=== PATIENT | male | born 1965 | race African-American/Black ===

== ENCOUNTER 2017-08-14 05:35 | Emergency (ER) | payer MEDICAID ==
[~2017-08-14] VITALS: Ht 190.5 cm; Wt 151.5 kg
[~2017-08-14 05:35] MED LIST: CEPHALEXIN500 MG ORAL
[2017-08-14] MEDS ORDERED: BP MEDS (05:45)
[2017-08-14 05:55] VITALS: BP 145/92
[2017-08-14] MEDS ORDERED: AZITHROMYCIN250 MG ORAL (06:00)
[2017-08-14] MEDS ORDERED: IBUPROFEN600 MG ORAL (06:00)
--- NOTE | 2017-08-14 06:01 | Emergency Room Report ---
History of Present Illness General Chief Complaint: Sore Throat Source: Patient Present Illness HPI Is a 52-year-old male with has been aggressive high blood pressure for which is noncompliant. He presents with chief complaint of sore throat for the last week and half. No fever chills but no nausea vomiting. Worse with swallowing. Denies any other complaint. Allergies: Coded Allergies: No Known Allergies (Unverified , 08/21/15) Patient History Past Medical History: see triage record, old chart reviewed, HTN Past Surgical History: other Pertinent Family History: none Social History: Denies: smoking Immunizations: other Reviewed Nursing Documentation: PMH: Agreed, PSxH: Agreed Nursing Documentation-PMH Hx Hypertension: Yes Review of Systems Eye: Denies: eye pain, blurred vision ENT: Reports: throat pain, Denies: ear pain, nose congestion, throat swelling Respiratory: Denies: cough, shortness of breath Cardiovascular: Denies: chest pain, palpitations Gastrointestinal: Denies: abdominal pain, diarrhea, nausea, vomiting Musculoskeletal: Denies: back pain, joint pain Skin: Denies: rash Neurological: Denies: headache, numbness Endocrine: Denies: increased thirst, increased urine Hematologic/Lymphatic: Denies: easy bruising All Other Systems: negative except mentioned in HPI Physical Exam Vital Signs Date Time Temp Pulse Resp B/P (MAP) Pulse Ox O2 Delivery O2 Flow Rate FiO2 08/14/17 05:39 98.1 72 16 145/92 95 Room Air vitals with hypertension Sp02 EP Interpretation: reviewed, normal General Appearance: well appearing, no apparent distress, alert Head: normocephalic, atraumatic Eyes: bilateral eye PERRL, bilateral eye EOMI ENT: hearing grossly normal, tonsillar swelling, pharyngeal erythema Neck: full range of motion, supple, no meningismus Respiratory: chest non-tender, lungs clear, normal breath sounds Cardiovascular #1: regular rate, rhythm, no murmur Gastrointestinal: normal bowel sounds, non tender, no mass, no organomegaly, no bruit, non-distended Musculoskeletal: back normal, gait/station normal, normal range of motion Psychiatric: mood/affect normal Skin: warm/dry Medical Decision Making Diagnostic Impression: Primary Impression: Acute tonsillitis ER Course This is a 52-year-old male presents with tonsillitis. Because been going on for a week and a half we'll put on antibiotics but no evidence of peritonsillar abscess or retropharyngeal abscess. No evidence of [place] angina. Last Vital Signs Date Time Temp Pulse Resp B/P (MAP) Pulse Ox O2 Delivery O2 Flow Rate FiO2 08/14/17 05:55 98.1 16 145/92 95 Room Air 08/14/17 05:39 72 Status: unchanged Disposition: HOME, SELF-CARE Condition: Stable Scripts Azithromycin* (ZITHROMAX*) 250 Mg Tablet 250 MG ORAL DAILY, #6 TAB 0 Refills Take two tablets by mouth today, then take one tablet by mouth daily for four days Prov: EDEN LANDA M.D. 08/14/17 Ibuprofen* (MOTRIN*) 600 Mg Tablet 600 MG ORAL THREE TIMES A DAY, #30 TAB 0 Refills Prov: EDEN LANDA M.D. 08/14/17 Patient Instructions: Tonsillitis Additional Instructions: Followup with your Dr. in 7 days. Return if worse. EDEN LANDA M.D. Aug 14, 2017 06:00
== END 2017-08-14 06:03 | disposition home or self-care (01) ==
LOC: EMR 05:58
DX: J03.90 Acute tonsillitis, unspecified (principal); I10 Essential (primary) hypertension
CPT/HCPCS: 99283

== ENCOUNTER 2017-10-17 09:53 | Emergency (ER) | payer MEDICAID ==
[~2017-10-17] VITALS: Ht 190.5 cm; Wt 145.1 kg
[~2017-10-17 09:53] MED LIST changes: +AZITHROMYCIN250 MG ORAL; +BP MEDS; +IBUPROFEN600 MG ORAL
[2017-10-17 10:33] VITALS: BP 150/95
--- NOTE | 2017-10-17 11:03 | Emergency Room Report ---
History of Present Illness General Chief Complaint: Sore Throat Source: Patient Present Illness HPI This patient states that he woke up this morning with a sore feeling in his throat. He also has a sensation that there is something hanging in the back of his throat. He states that his throat feels weird when he swallows. He denies fever or chills. He denies nausea or vomiting. He denies neck pain. He denies rhinorrhea. He denies cough or congestion. He has no other complaints. Allergies: Coded Allergies: No Known Allergies (Unverified , 08/21/15) Patient History Past Medical History: see triage record, HTN Social History: Denies: smoking, alcohol use, drug use Reviewed Nursing Documentation: PMH: Agreed; PSxH: Agreed Nursing Documentation-PMH Hx Hypertension: Yes Review of Systems All Other Systems: negative except mentioned in HPI Physical Exam Vital Signs Date Time Temp Pulse Resp B/P (MAP) Pulse Ox O2 Delivery O2 Flow Rate FiO2 10/17/17 10:04 98.2 75 17 150/95 95 Room Air 98.2 Sp02 EP Interpretation: reviewed, normal General Appearance: no apparent distress, alert, GCS 15, non-toxic Head: normocephalic, atraumatic Eyes: bilateral eye normal inspection, bilateral eye PERRL ENT: hearing grossly normal, no angioedema, normal voice, uvula midline - The uvula is erythematous, swollen and enlarged., moist mucus membranes, pharyngeal erythema Neck: full range of motion, supple/symm/no masses Respiratory: chest non-tender, lungs clear, normal breath sounds, speaking full sentences Cardiovascular #1: regular rate, rhythm, no edema Gastrointestinal: normal bowel sounds, non tender, soft, non-distended, no guarding, no rebound Rectal: deferred Musculoskeletal: back normal, gait/station normal, normal range of motion, non- tender Neurologic: alert, oriented x3, responsive, motor strength/tone normal, sensory intact, speech normal Psychiatric: judgement/insight normal, memory normal, mood/affect normal, no suicidal/homicidal ideation Skin: normal color, no rash, warm/dry, well hydrated Medical Decision Making Diagnostic Impression: Primary Impression: Pharyngitis Additional Impression: Uvulitis ER Course This patient has a clinical presentation consistent with pharyngitis and has an associated uvulitis. Physical exam is consistent with a viral etiology, however given the uvulitis I felt I should treat with an antibiotic given bacterial etiology is more common in uvulitis. There is no evidence of peritonsillar abscess or deep neck abscess. There is no airway edema. Overall , this patient had a very benign examination. I will also give the patient Motrin as a pain medication and anti-inflammatory. The patient was given return precautions and followup instructions. Last Vital Signs Date Time Temp Pulse Resp B/P (MAP) Pulse Ox O2 Delivery O2 Flow Rate FiO2 10/17/17 10:33 98.1 84 17 150/95 95 Room Air 98.1 Disposition: HOME, SELF-CARE Condition: Improved Referrals: [facility],REFERRING (PCP) Patient Instructions: Sore Throat BRIDGETTE EASON D.O. Oct 17, 2017 11:03
[2017-10-17] MEDS ORDERED: AUGMENTIN 875-1 EAC1 ORAL (11:12)
[2017-10-17] MEDS ORDERED: MEDROL4 MG ORAL (11:12)
[2017-10-17] MEDS ORDERED: IBUPROFEN600 MG ORAL (11:12)
[2017-10-17 11:30] VITALS: BP 148/88
== END 2017-10-17 11:42 | disposition home or self-care (01) ==
LOC: EMR 10:21
DX: J02.9 Acute pharyngitis, unspecified (principal); K12.2 Cellulitis and abscess of mouth; I10 Essential (primary) hypertension
CPT/HCPCS: 99282

== ENCOUNTER 2018-07-23 21:33 | Emergency (ER) | payer MEDICAID ==
[~2018-07-23] VITALS: Ht 190.5 cm; Wt 145.1 kg
[~2018-07-23 21:33] MED LIST changes: +AUGMENTIN 875-1 EAC1 ORAL; +MEDROL4 MG ORAL
[2018-07-23 22:00] VITALS: BP 148/94
--- NOTE | 2018-07-23 22:00 | NUR ---
ER Nurse Note: Pt came from home c/o epigastric pain for three days. Pt stated he does not know the onset and aggraviting factors. Pt stated blanca at 4/10 pain, burning and sharp pain in the mid chest and epigastric area. Pt denies n/v/d; stated he can tolerate foods. Bowel sounds heard in all quadrants. Abdomen firm and round. ERMD at pt side; will continue to montior.
[2018-07-23] MEDS ORDERED: Sodium Chloride 500ML 500 ML IV ONE (22:03)
[2018-07-23] MEDS ORDERED: Mylanta II UD 30ml ORAL ONE (22:15)
[2018-07-23] MEDS ORDERED: Dicyclomine HCl 10mg/5ml oral soln ORAL ONE (22:15)
[2018-07-23] MEDS ORDERED: Lidocaine 2% Visc 15ml soln ORAL ONE (22:15)
[2018-07-23 22:44] LABS: BASOPHILS % (AUTO) 2.6 % (0.0-2.0); EOSINOPHILS % (AUTO) 5.2 % (0.0-3.0); HEMATOCRIT 43.7 % (42.0-52.0); LYMPHOCYTES % (AUTO) 47.7 % (20.0-45.0); MEAN CORPUSCULAR VOLUME 82 FL (80-99); MONOCYTES % (AUTO) 7.1 % (1.0-10.0); NEUTROPHILS % (AUTO) 37.4 % (45.0-75.0); PLATELET COUNT 277 K/UL (150-450); RED BLOOD COUNT 5.35 M/UL (4.70-6.10); RED CELL DISTRIBUTION WIDTH 13.6 % (11.6-14.8); WHITE BLOOD COUNT 5.6 K/UL (4.8-10.8)
[2018-07-23 22:45] VITALS: BP 148/94
--- NOTE | 2018-07-23 22:45 | NUR ---
ER Nurse Note: Pt seen, treated, medically cleared by ERMD for discharge. Discharge instructions and prescriptions given with repeat verbalization by pt. Instructed pt to follow up with primary care phyican within one weel. Pt a&ox4, VSS, no signs of distress. IV removed, site clean and bandaged. ID band removed; left with all belongings on steady gait, via own transportation.
[2018-07-23 22:51] LABS: ANION GAP 10 mmol/L (5-15); BLOOD UREA NITROGEN 10 mg/dL (7-18); CALCIUM 9.1 MG/DL (8.5-10.1); CARBON DIOXIDE 24 MMOL/L (21-32); CHLORIDE 105 MMOL/L (98-107); CREATININE 1.2 MG/DL (0.55-1.30); POTASSIUM 3.7 MMOL/L (3.5-5.1); SODIUM 139 MMOL/L (136-145)
[2018-07-23 22:55] LABS: ALANINE AMINOTRANSFERASE 35 U/L (12-78); ALBUMIN 3.8 G/DL (3.4-5.0); ALBUMIN/GLOBULIN RATIO 0.9 (1.0-2.7); ALKALINE PHOSPHATASE 86 U/L (46-116); ASPARTATE AMINO TRANSFERASE 22 U/L (15-37); BILIRUBIN,TOTAL 0.2 MG/DL (0.2-1.0)
[2018-07-23] MEDS ORDERED: RANITIDINE HCL150 MG ORAL (23:16)
--- NOTE | 2018-07-24 01:19 | Emergency Room Report ---
History of Present Illness General Chief Complaint: Abdominal Pain Source: Patient Present Illness HPI 53-year-old male presents ED for evaluation. Patient complaining of abdominal pain 3 days. Started after he drank some energy drinks and had some greasy food. Took some Mylanta and Pepto-Bismol without relief. Pain is epigastric, burning, 4 out of 10, nonradiating. Denies chest pain or shortness of breath. Denies fevers or chills. Denies nausea or vomiting. Denies any diarrhea. No other aggravating relieving factors. Denies any other associated symptoms Allergies: Coded Allergies: No Known Allergies (Unverified , 08/21/15) Patient History Past Medical History: HTN Past Surgical History: none Pertinent Family History: none Social History: Denies: smoking, alcohol use, drug use Immunizations: UTD Reviewed Nursing Documentation: PMH: Agreed; PSxH: Agreed Nursing Documentation-PMH Hx Hypertension: Yes Review of Systems All Other Systems: negative except mentioned in HPI Physical Exam Vital Signs Date Time Temp Pulse Resp B/P (MAP) Pulse Ox O2 Delivery O2 Flow Rate FiO2 07/23/18 21:42 98.4 84 16 148/94 95 Room Air Sp02 EP Interpretation: reviewed, normal General Appearance: no apparent distress, alert, GCS 15, non-toxic, obese Head: normocephalic, atraumatic Eyes: bilateral eye normal inspection, bilateral eye PERRL ENT: hearing grossly normal, normal pharynx, no angioedema, normal voice Neck: full range of motion, supple/symm/no masses Respiratory: chest non-tender, lungs clear, normal breath sounds, speaking full sentences Cardiovascular #1: regular rate, rhythm, no edema Cardiovascular #2: 2+ carotid (R), 2+ carotid (L), 2+ radial (R), 2+ radial (L) , 2+ dorsalis pedis (R), 2+ dorsalis pedis (L) Gastrointestinal: normal bowel sounds, soft, non-distended, no guarding, no rebound, tenderness - epigastric Rectal: deferred Genitourinary: normal inspection, no CVA tenderness Musculoskeletal: back normal, gait/station normal, normal range of motion, non- tender Neurologic: alert, oriented x3, responsive, motor strength/tone normal, sensory intact, speech normal Psychiatric: judgement/insight normal, memory normal, mood/affect normal, no suicidal/homicidal ideation Reflexes: 3+ bicep (R), 3+ bicep (L), 3+ tricep (R), 3+ tricep (L), 3+ knee (R) , 3+ knee (L) Skin: normal color, no rash, warm/dry, well hydrated Lymphatic: no adenopathy Medical Decision Making Diagnostic Impression: Primary Impression: Gastritis Qualified Codes: K29.00 - Acute gastritis without bleeding ER Course Hospital Course 53-year-old M presents to ED with epigastric pain x 3 days differential diagnosis: gastritis, SBO, cholecystits Clinical course Patient placed on stretcher. On threat monitoring analyst. After initial history and physical I ordered labs, IV fluids, pepcid, GI cocktail, EKG Labs - no leukocytosis, no electrolyte abnormalities, LFTs normal EKG - NSR, no acute ischemic changes interpreted by me Upon reassessment, patient states pain has improved. findings consistent with gastritis Discussed findings with patient. Abdomen soft. No guarding or rebound. Safe for discharge close outpatient follow-up. States he has a PMD I feel this is a highly complex case requiring extensive working including EKG/ Rhythm strip, Xray/CT/US, Blood/urine lab work, repeat exams while in ED, and administration of strong opiates/narcotics for pain control, admission to hospital or close patient follow up. Diagnosis - gastritis Stable and discharged to home with prescriptions for Zantac. Followup with PMD. Return to ED if symptoms recur or worsen Labs Test 07/23/18 22:20 White Blood Count 5.6 K/UL (4.8-10.8) Red Blood Count 5.35 M/UL (4.70-6.10) Hemoglobin 14.0 G/DL (14.2-18.0) Hematocrit 43.7 % (42.0-52.0) Mean Corpuscular Volume 82 FL (80-99) Mean Corpuscular Hemoglobin 26.2 PG (27.0-31.0) Mean Corpuscular Hemoglobin Concent 32.1 G/DL (32.0-36.0) Red Cell Distribution Width 13.6 % (11.6-14.8) Platelet Count 277 K/UL (150-450) Mean Platelet Volume 6.6 FL (6.5-10.1) Neutrophils (%) (Auto) 37.4 % (45.0-75.0) Lymphocytes (%) (Auto) 47.7 % (20.0-45.0) Monocytes (%) (Auto) 7.1 % (1.0-10.0) Eosinophils (%) (Auto) 5.2 % (0.0-3.0) Basophils (%) (Auto) 2.6 % (0.0-2.0) Sodium Level 139 MMOL/L (136-145) Potassium Level 3.7 MMOL/L (3.5-5.1) Chloride Level 105 MMOL/L (98-107) Carbon Dioxide Level 24 MMOL/L (21-32) Anion Gap 10 mmol/L (5-15) Blood Urea Nitrogen 10 mg/dL (7-18) Creatinine 1.2 MG/DL (0.55-1.30) Estimat Glomerular Filtration Rate > 60 mL/min (>60) Glucose Level 86 MG/DL (74-106) Calcium Level 9.1 MG/DL (8.5-10.1) Total Bilirubin 0.2 MG/DL (0.2-1.0) Aspartate Amino Transf (AST/SGOT) 22 U/L (15-37) Alanine Aminotransferase (ALT/SGPT) 35 U/L (12-78) Alkaline Phosphatase 86 U/L (46-116) Total Protein 8.0 G/DL (6.4-8.2) Albumin 3.8 G/DL (3.4-5.0) Globulin 4.2 g/dL Albumin/Globulin Ratio 0.9 (1.0-2.7) Lipase 254 U/L (73-393) EKG Diagnostic Results Rate: normal Rhythm: NSR ST Segments: no acute changes ASA given to the pt in ED: No Rhythm Strip Diag. Results EP Interpretation: yes Rhythm: NSR, no PVC's, no ectopy Last Vital Signs Date Time Temp Pulse Resp B/P (MAP) Pulse Ox O2 Delivery O2 Flow Rate FiO2 07/23/18 21:42 98.4 84 16 148/94 95 Room Air Status: improved Disposition: HOME, SELF-CARE Condition: Stable Scripts Ranitidine Hcl* (ZANTAC*) 150 Mg Tablet 150 MG ORAL TWICE A DAY, #30 TAB Prov: Anderson Mason MD 07/23/18 Patient Instructions: Gastritis, Adult, [id number] Anderson Mason MD Jul 24, 2018 01:19
--- NOTE | 2018-07-24 13:21 | Cardiology Report ---
APPROVED REPORT EKG Measurement Heart [id number] Normal sinus rhythm Normal ECG
== END 2018-07-23 22:45 | disposition home or self-care (01) ==
LOC: EMR 21:59
DX: K29.70 Gastritis, unspecified, without bleeding (principal); I10 Essential (primary) hypertension
CPT/HCPCS: 36415; 80053; 83690; 85025; 93005; 96374; 96375; 99284; J2405; S0028

== ENCOUNTER 2019-03-02 00:42 | Emergency (ER) | payer MEDICAID ==
[~2019-03-02] VITALS: Ht 193 cm; Wt 163.3 kg
[~2019-03-02 00:42] MED LIST changes: +RANITIDINE HCL150 MG ORAL
--- NOTE | 2019-03-02 00:55 | NUR ---
ED Nurse Note: Walk-in patient presents with complaints of left lower leg lesion, rash lik with pus for a few days. Patient reports no pain at this time. Will monitor progress and service any orders.
[2019-03-02 00:56] VITALS: BP 147/97
[2019-03-02] MEDS ORDERED: MUPIROCIN22 GM TOPIC (01:06)
[2019-03-02] MEDS ORDERED: BACTRIM DS TAB1 EAC1 ORAL (01:06)
--- NOTE | 2019-03-02 01:06 | Emergency Room Report ---
History of Present Illness General Chief Complaint: Skin Rash/Abscess Source: Patient Present Illness [facility] This is a 53-year-old male with a history of hypertension but not on medication. He presents with chief complaint of a spider bite to the right lower extremity. He noticed some itching to the right lower extremity this morning. He is scratching it and since it o'clock that he has some drainage. He also has abrasion to his legs secondary to hitting his bed frame frequently. Denies seeing any spider. No pain. No fever chills. Allergies: Coded Allergies: No Known Allergies (Unverified , 08/21/15) Patient History Past Medical History: see triage record, old chart reviewed, HTN Past Surgical History: none Pertinent Family History: none Social History: Denies: smoking Immunizations: other Reviewed Nursing Documentation: PMH: Agreed; PSxH: Agreed Nursing Documentation-PMH Past Medical History: No History, Except For Hx Hypertension: Yes Hx Asthma: Yes Review of Systems Eye: Denies: eye pain, blurred vision ENT: Denies: ear pain, nose congestion, throat swelling Respiratory: Denies: cough, shortness of breath Cardiovascular: Denies: chest pain, palpitations Gastrointestinal: Denies: abdominal pain, diarrhea, nausea, vomiting Musculoskeletal: Denies: back pain, joint pain Skin: Denies: rash Neurological: Denies: headache, numbness Endocrine: Denies: increased thirst, increased urine Hematologic/Lymphatic: Denies: easy bruising All Other Systems: negative except mentioned in HPI Physical Exam Vital Signs Date Time Temp Pulse Resp B/P (MAP) Pulse Ox O2 Delivery O2 Flow Rate FiO2 03/02/19 00:47 97.5 74 16 147/97 (114) 95 Room Air Vitals with high blood pressure Sp02 EP Interpretation: reviewed, normal General Appearance: well appearing, no apparent distress, alert Head: normocephalic, atraumatic Eyes: bilateral eye PERRL, bilateral eye EOMI ENT: hearing grossly normal, normal pharynx Neck: full range of motion, supple, no meningismus Respiratory: chest non-tender, lungs clear, normal breath sounds Cardiovascular #1: regular rate, rhythm, no murmur Gastrointestinal: normal bowel sounds, non tender, no mass, no organomegaly, no bruit, non-distended Musculoskeletal: back normal, gait/station normal, normal range of motion, other - Right lower extremity: Over the harper area he has abrasion and yellowish serous drainage. No abscess seen. No crepitance. Mild redness and warmth. Psychiatric: mood/affect normal Medical Decision Making Diagnostic Impression: Primary Impression: Cellulitis of right lower extremity without foot ER Course Patient with cellulitis to the lower extremity. Most likely staph infection. No evidence of any assess the need to be I&D or necrotizing fasciitis. Will discharge home. Last Vital Signs Date Time Temp Pulse Resp B/P (MAP) Pulse Ox O2 Delivery O2 Flow Rate FiO2 03/02/19 00:56 97.5 82 16 147/97 95 Room Air Status: unchanged Disposition: HOME, SELF-CARE Condition: Stable Scripts Mupirocin* (MUPIROCIN*) 22 Gm Oint...g. 1 APPLIC TOPIC THREE TIMES A DAY, #22 GM Prov: Larry Guerra MD 03/02/19 Trimethoprim/Sulfamethoxazole 160/800* (BACTRIM DS TABLET*) 1 Each Tablet 1 TAB ORAL Q12H, #14 TAB 0 Refills Prov: Larry Guerra MD 03/02/19 Additional Instructions: Keep wound clean. Clean first with hydrogen peroxide and then apply antibiotic ointment. Follow-up with your doctor in 7 days for recheck. Check your blood pressure at home. Return if symptoms worsen. Larry Guerra MD Mar 02, 2019 01:06
--- NOTE | 2019-03-02 01:14 | NUR ---
ED Nurse Note: Patient cleared for discharge, no s/s/ of acute distress. Patient ID band removed. Patient verbalized understanding of discharge instructions and departed with all belongings
[2019-03-02 01:15] VITALS: BP 147/97
[2019-03-02] MEDS ORDERED: Neosporin Oint Ud Pkt TOPIC ONE (01:15)
== END 2019-03-02 01:14 | disposition home or self-care (01) ==
LOC: EMR 01:01
DX: L03.115 Cellulitis of right lower limb (principal); I10 Essential (primary) hypertension; J45.909 Unspecified asthma, uncomplicated
CPT/HCPCS: 99282

== ENCOUNTER 2019-04-01 21:36 | Emergency (ER) | payer MEDICAID ==
[~2019-04-01] VITALS: Ht 190.5 cm; Wt 165.1 kg
[~2019-04-01 21:36] MED LIST changes: +BACTRIM DS TAB1 EAC1 ORAL; +MUPIROCIN22 GM TOPIC
[2019-04-01 21:48] VITALS: BP 133/78
--- NOTE | 2019-04-01 21:48 | NUR ---
ED Nurse Note: Pt walked in to ER and is stating that "fluid coming out of my wound". As per patient, he got an infection on right harper one month ago, [place] [facility], got treated and was D/C with antibiotics. Pt stated he took all meds but wound is not healing. Wound small, clear drainage. 4/10 pain with touch. Alert and oriented, verbally responsive. Breathing even and unlabored. No SOB. Afebrile. VSS
[2019-04-01] MEDS ORDERED: CEPHALEXIN500 MG ORAL (22:03)
[2019-04-01 22:05] VITALS: BP 133/78
--- NOTE | 2019-04-01 22:05 | NUR ---
ED Nurse Note: Pt cleared by ERMD for discharge. DC instructions/prescription was given and explained to pt and verbalized understanding of teachings. All medical deviecs such as ID band removed. Pt is AAO x4, ambulatory and left with all personal belongings.
--- NOTE | 2019-04-01 22:11 | Emergency Room Report ---
History of Present Illness General Chief Complaint: Skin Rash/Abscess Source: Patient Present Illness HPI Patient presents with complaints of ongoing problems with his right leg reports that he was here last month with Some discharge from the right leg at that time questionably insect bite and was treated with antibiotics Patient denies any fevers denies any headache denies any chest pain he feels that the redness is better however there continues to be some discharge from 1 of the open areas in the anterior leg denies any calf pain denies any medications patient has not had any follow-up with primary physician since discharge from here Patient reports that he does not feel his primary physician does anything Patient main complaint was from the right leg however evaluating both legs patient has similar findings on the left leg with several scab formations in the anterior tibial region with Edema as well Allergies: Coded Allergies: No Known Allergies (Unverified , 08/21/15) Patient History Past Medical History: see triage record Reviewed Nursing Documentation: PMH: Agreed; PSxH: Agreed Nursing Documentation-PMH Hx Hypertension: Yes Hx Asthma: Yes Review of Systems All Other Systems: negative except mentioned in HPI Physical Exam Vital Signs Date Time Temp Pulse Resp B/P (MAP) Pulse Ox O2 Delivery O2 Flow Rate FiO2 04/01/19 21:42 98.1 81 16 133/78 (96) 95 Room Air Sp02 EP Interpretation: reviewed, normal General Appearance: well appearing, no apparent distress Head: normocephalic, atraumatic Eyes: bilateral eye PERRL, bilateral eye EOMI ENT: hearing grossly normal, normal pharynx Neck: supple Respiratory: lungs clear Cardiovascular #1: regular rate, rhythm Gastrointestinal: non tender, soft Musculoskeletal: other - Patient has dependent edema on both lower extremities , there is a small scab formation on the mid point of the dorsal tibial area, no obvious discharge at this time, there was some mild erythema noted Neurologic: alert, oriented x3 Skin: other - Bilateral mild edema noted scab formation on both lower extremities, Lymphatic: no adenopathy Medical Decision Making Diagnostic Impression: Primary Impression: Rash and other nonspecific skin eruption Additional Impression: edema ER Course Patient's findings are consistent with fairly chronic presenting pathology Patient requires pressure stockings Close primary physician follow-up is initially placed on Keflex given the mild erythema And will return with any changes or concerns Last Vital Signs Date Time Temp Pulse Resp B/P (MAP) Pulse Ox O2 Delivery O2 Flow Rate FiO2 04/01/19 21:48 98.1 78 16 133/78 95 Room Air Status: improved Disposition: HOME, SELF-CARE Condition: Improved Scripts Cephalexin* (KEFLEX*) 500 Mg Capsule 500 MG ORAL EVERY 6 HOURS, #10 CAP Prov: Stanislav Torres DO 04/01/19 Referrals: [facility] Patient Instructions: Edema, [id number] Additional Instructions: Patient is provided with the discharge instructions notified to follow up with primary doctor in the next 2-3 days otherwise return to the er with any worsening symptoms. Please note that this report is being documented using [employer] technology. This can lead to erroneous entry secondary to incorrect interpretation by the dictating instrument. Stanislav Torres DO Apr 01, 2019 22:11
[2019-04-01] MEDS ORDERED: Cephalexin 500mg cap ORAL ONE (22:15)
== END 2019-04-01 22:05 | disposition home or self-care (01) ==
LOC: EMR 21:55
DX: R60.0 Localized edema (principal); R21 Rash and other nonspecific skin eruption; I10 Essential (primary) hypertension; J45.909 Unspecified asthma, uncomplicated
CPT/HCPCS: 99282

== ENCOUNTER 2019-12-27 18:49 | Emergency (ER) | payer MEDICAID ==
[~2019-12-27] VITALS: Ht 190.5 cm; Wt 154.2 kg
[~2019-12-27 18:49] MED LIST changes: +BACITRACIN-P28.35 GM TP
[2019-12-27 19:11] VITALS: BP 173/97
[2019-12-27] MEDS ORDERED: Bacitracin Oint UD TOPIC ONE (19:30)
[2019-12-27] MEDS ORDERED: Lidocaine 1% Plain 30 ml INJ ONE (19:30)
--- NOTE | 2019-12-27 19:32 | Emergency Room Report ---
History of Present Illness General Chief Complaint: Skin Rash/Abscess Source: Patient Present Illness HPI 54-year-old male presents to the emergency department complaining of 8 out of 10 severity progressive pain, swelling, tenderness and erythema to the right great toe x1 week. Patient reports he attempted to remove part of his toenail on his own. He states when he was squeezing his toe at home he had some pus that came out. He denies trauma. He denies joint pain. He denies history of immune compromise, decreased circulation or diabetes. No other aggravating or relieving factors at this time. Denies fevers or chills. Allergies: Coded Allergies: No Known Allergies (Unverified , 08/21/15) COVID-19 Screening Contact w/high risk pt: No Recent Travel to affected area: No Experienced COVID-19 symptoms?: No COVID-19 Testing performed RIVET TESTER: No Patient History Past Medical History: see triage record Past Surgical History: none Pertinent Family History: none Reviewed Nursing Documentation: PMH: Agreed; PSxH: Agreed Nursing Documentation-PMH Past Medical History: No Stated History Hx Hypertension: Yes Hx Asthma: Yes Review of Systems All Other Systems: negative except mentioned in HPI Physical Exam Vital Signs Date Time Temp Pulse Resp B/P (MAP) Pulse Ox O2 Delivery O2 Flow Rate FiO2 12/27/19 18:58 96.1 83 16 173/97 (122) 97 Room Air Sp02 EP Interpretation: reviewed, normal General Appearance: no apparent distress, alert, GCS 15, non-toxic Head: normocephalic, atraumatic Eyes: bilateral eye normal inspection, bilateral eye PERRL ENT: hearing grossly normal, normal voice Neck: full range of motion Respiratory: lungs clear, normal breath sounds, speaking full sentences Cardiovascular #1: regular rate, rhythm, normal capillary refill Cardiovascular #2: 2+ dorsalis pedis (R), 2+ dorsalis pedis (L) Musculoskeletal: normal range of motion, gait/station normal, swelling - cuticle of the right great toe Neurologic: alert, motor strength/tone normal, oriented x3, sensory intact, responsive, speech normal Psychiatric: judgement/insight normal Skin: other - ingrown toe nail of the right great toe. erythema, macerated appearance, and the lateral cuticle is swollen with embeded toe nail. Procedures Incision and Drainage Incision and Drainage : Volume Anesthetic (ccs): 5 Additional Procedure Procedure Narrative Wedge resection procedure: - verbal permission was obtained. - extremity involved is the Right great toe -5cc of Lidocaine 1% plain was injected in a digital block fashion, good anesthesia was obtained. - The extremity was Cleaned and draped in a sterile fashion - The lateral aspect of the nail was exposed and isolated from the nail bed. -Section of the lateral aspect of the nail was cut by sterile scissors. - bleeding was controlled with direct pressure. -Sterile dressing was applied. Pt. tolerated the procedure well, there were no complications. Medical Decision Making PA Attestation Dr. Torres is my supervising Physician whom patient management has been discussed with. Diagnostic Impression: Primary Impression: Ingrown toenail of right foot with infection ER Course 54-year-old male presents to the emergency department complaining of 8 out of 10 severity progressive pain, swelling, tenderness and erythema to the right great toe x1 week. Patient reports he attempted to remove part of his toenail on his own. He states when he was squeezing his toe at home he had some pus that came out. He denies trauma. He denies joint pain. He denies history of immune compromise, decreased circulation or diabetes. No other aggravating or relieving factors at this time. Denies fevers or chills. Ddx considered but are not limited to cellulitis, paronychia, eponychia, ingrown toe nail, fracture, d/L, gout Vital signs: are WNL, pt. is afebrile H&PE are most consistent with paronychia of the right great toe nail secondary to ingrown toenail. ORDERS: none required at this time, the diagnosis is clinical ED INTERVENTIONS: - verbal consent was received . - lesion was cleaned with betadine prep. - wedge resection was performed. - bacitracin and sterile dressing was then applied afterward. - will d/c pt. with PO abx. DISCHARGE: At this time pt. is stable for d/c to home. Will provide printed patient care instructions, and any necessary prescriptions. Care plan and follow up instructions have been discussed with the patient prior to discharge. Last Vital Signs Date Time Temp Pulse Resp B/P (MAP) Pulse Ox O2 Delivery O2 Flow Rate FiO2 12/27/19 19:11 96.1 79 16 173/97 97 Room Air Disposition: HOME, SELF-CARE Condition: Stable Scripts No Active Prescriptions or Reported Meds Patient Instructions: Ingrown Toenail Additional Instructions: Take medications as directed. Do not drink alcohol, drive, or operate heavy machinery while taking [place] as this may cause drowsiness. Follow up with a Primary Care Provider in 3-5 days, even if your symptoms have resolved. TRAFFIC AGENT EVAL --Please review list of primary care clinics, if you do not already have a primary care provider Return sooner to ED if new symptoms occur, or current symptoms become worse. - Please note that this Emergency Department Report was dictated using [employer] and founder technology software, occasionally this can lead to erroneous entry secondary to interpretation by the dictation equipment. Tabitha Marrufo Dec 27, 2019 19:32
[2019-12-27] MEDS ORDERED: ACETAMINOPHEN-1 EAC1 ORAL (20:03)
[2019-12-27] MEDS ORDERED: BACITRACIN15 GM TOPIC (20:03)
[2019-12-27] MEDS ORDERED: AUGMENTIN 875-1 EAC1 ORAL (20:03)
[2019-12-27 20:18] VITALS: BP 173/97
== END 2019-12-27 20:18 | disposition home or self-care (01) ==
LOC: EMR 19:30
DX: L60.0 Ingrowing nail (principal); I10 Essential (primary) hypertension
CPT/HCPCS: 11765; J2001; Z7502; 99283

== ENCOUNTER 2020-03-30 22:34 | Emergency (ER) | payer MEDICAID ==
[~2020-03-30] VITALS: Ht 190.5 cm; Wt 163.3 kg
[~2020-03-30 22:34] MED LIST changes: +ACETAMINOPHEN-1 EAC1 ORAL; +BACITRACIN15 GM TOPIC
[2020-03-30 22:40] VITALS: BP 139/91
[2020-03-30] MEDS ORDERED: Bactrim-DS 1 tab ORAL ONE (23:00)
[2020-03-30] MEDS ORDERED: HYDROcodone/Acetamin 5/325 tab ORAL ONE (23:00)
[2020-03-30] MEDS ORDERED: BACTRIM DS TAB1 EAC1 ORAL (23:04)
[2020-03-30] MEDS ORDERED: MUPIROCIN22 GM TOPIC (23:04)
[2020-03-30] MEDS ORDERED: IBUPROFEN600 M1 ORAL (23:04)
--- NOTE | 2020-03-30 23:04 | Emergency Room Report ---
History of Present Illness General Chief Complaint: Edema Source: Patient Present Illness HPI This is a 54-year-old male with a history of hypertension and asthma. He presents with chief complaint of swelling to his lip and nose. Onset yesterday. He is noticed a small pimple in his nose. He tried to pop it. He woke up today and is more swollen. Lips are little numb. Tender to palpation. No drainage. No fever chills. Pain is 8 out of 10. Worse with palpation. Better living alone. Allergies: Coded Allergies: No Known Allergies (Unverified , 08/21/15) COVID-19 Screening Contact w/high risk pt: No Recent Travel to affected area: No Experienced COVID-19 symptoms?: No COVID-19 Testing performed MATERIALS SCIENTIST: No Patient History Past Medical History: see triage record, old chart reviewed, HTN, asthma Past Surgical History: none Pertinent Family History: none Social History: Denies: smoking Immunizations: other Reviewed Nursing Documentation: PMH: Agreed; PSxH: Agreed Nursing Documentation-PMH Hx Hypertension: Yes Hx Asthma: Yes Review of Systems Eye: Denies: eye pain, blurred vision ENT: Denies: ear pain, nose congestion, throat swelling Respiratory: Denies: cough, shortness of breath Cardiovascular: Denies: chest pain, palpitations Gastrointestinal: Denies: abdominal pain, diarrhea, nausea, vomiting Musculoskeletal: Denies: back pain, joint pain Skin: Denies: rash Neurological: Denies: headache, numbness Endocrine: Denies: increased thirst, increased urine Hematologic/Lymphatic: Denies: easy bruising All Other Systems: negative except mentioned in HPI Physical Exam Vital Signs Date Time Temp Pulse Resp B/P (MAP) Pulse Ox O2 Delivery O2 Flow Rate FiO2 03/30/20 22:35 98.2 82 16 139/91 (107) 97 Room Air Vitals unremarkable Sp02 EP Interpretation: reviewed, normal General Appearance: well appearing, no apparent distress, alert, obese Head: normocephalic, atraumatic Eyes: bilateral eye PERRL, bilateral eye EOMI ENT: hearing grossly normal, normal pharynx, other - Left nares: Just inside the nose there is a small swelling and tenderness. There is some slight swelling to the lip medially on the upper lip. No dental tenderness. No abscess seen. Neck: full range of motion, supple, no meningismus Respiratory: chest non-tender, lungs clear, normal breath sounds Cardiovascular #1: regular rate, rhythm, no murmur Gastrointestinal: normal bowel sounds, non tender, no mass, no organomegaly, no bruit, non-distended Musculoskeletal: back normal, normal range of motion, gait/station normal Psychiatric: mood/affect normal Procedures Incision and Drainage Incision and Drainage : Consent: Verbal Site: Nose Blade Size: 11 I & D Procedure: betadine prep Wound Location: face Anesthesia: 1% Lidocaine Patient Tolerated: Well Complications: None Progress Area cleaned with Betadine. Local anesthetic with 1% lidocaine without epinephrine. I used a small insulin needle. I made a small incision with 11 blade scalpel. Scant amount of pus expressed. Patient tolerated surgery without any problem. Medical Decision Making Diagnostic Impression: Primary Impression: Abscess ER Course Patient with a small abscess to the nose. Most likely MRSA. No deep infection. No necrotizing fasciitis. Will discharge home. Last Vital Signs Date Time Temp Pulse Resp B/P (MAP) Pulse Ox O2 Delivery O2 Flow Rate FiO2 03/30/20 22:35 98.2 82 16 139/91 (107) 97 Room Air Status: improved Disposition: HOME, SELF-CARE Condition: Stable Scripts Ibuprofen* (MOTRIN*) 600 Mg Tablet 600 MG ORAL Q6H PRN for For Pain, #30 TAB 0 Refills Prov: Larry Guerra MD 03/30/20 Mupirocin* (MUPIROCIN*) 22 Gm Oint...g. 1 APPLIC TOPIC THREE TIMES A DAY, #22 GM Prov: Larry Guerra MD 03/30/20 Trimethoprim/Sulfamethoxazole 160/800* (BACTRIM DS TABLET*) 1 Each Tablet 1 TAB ORAL Q12H, #14 TAB 0 Refills Prov: Larry Guerra MD 03/30/20 Referrals: NON PHYSICIAN (PCP) Additional Instructions: Follow-up in 1 to 2 days for recheck. Clean wound with hydrogen peroxide first and then apply antibiotic ointment. Return if symptoms worsen. Larry Guerra MD Mar 30, 2020 23:04
[2020-03-30 23:15] VITALS: BP 139/91
== END 2020-03-30 23:15 | disposition home or self-care (01) ==
LOC: EMR 22:55
DX: J34.0 Abscess, furuncle and carbuncle of nose (principal); I10 Essential (primary) hypertension; J45.909 Unspecified asthma, uncomplicated
CPT/HCPCS: 10060; Z7502; 99282